=== PATIENT | female | born 1990 | race American Indian/Alaskan Native ===

== ENCOUNTER 2021-01-10 22:34 | Emergency (ER) | payer MEDICAID, OTHER ==
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
[2021-01-10] MEDS ORDERED: Ketorolac 30 MG/ML SDV IM ONE (23:56)
--- NOTE | 2021-01-11 00:05 | CRLCT ---
For Patients: As a result of the Century Cures Act, medical imaging exams and procedure reports are released immediately into your electronic medical record. You may view this report before your referring provider. If you have questions, please contact your health care provider. INDICATION: Trauma. Headaches. TECHNIQUE: Non-contrast CT of the head is submitted. No comparisons. FINDINGS: The ventricles, sulci and gyri are of normal size, shape and contour. Midline structures are centrally located. No convincing evidence of intra- or extra-axial fluid collections. IMPRESSION: 1. No radiographic evidence of acute intracranial abnormalities. Dictated by Brooks Cr MD @ 01/11/2021 12:02:17 AM Please note that all CT scans at this facility use dose modulation, iterative reconstruction, and/or weight-based dosing when appropriate to reduce radiation dose to as low as reasonably achievable. Dictated by: Brooks Cr MD @ 01/11/2021 00:02:24 (Electronically Signed)
== END 2021-01-11 00:23 | disposition home or self-care (01) ==
LOC: JP.ED 22:34
DX: S06.0X1A Concussion with loss of consciousness of 30 minutes or less, initial encounter (principal); S90.31XA Contusion of right foot, initial encounter; S00.01XA Abrasion of scalp, initial encounter; W20.8XXA Other cause of strike by thrown, projected or falling object, initial encounter; Y93.64 Activity, baseball
CPT/HCPCS: 70450; 96372; 99284; J1885

== ENCOUNTER 2021-02-18 04:34 | Emergency (ER) | payer MEDICAID, OTHER ==
[2021-02-18] MEDS ORDERED: Ketorolac 30 MG/ML SDV IM ONE (04:41)
--- NOTE | 2021-02-18 04:56 | EDM.PDOC ---
ED HPI GENERAL MEDICAL PROBLEM - General Chief Complaint: General Stated Complaint: COVID POSITIVE Time Seen by Provider: 02/18/21 04:39 Source of Information: Reports: Patient, EMS History Limitations: Reports: No Limitations - History of Present Illness INITIAL COMMENTS - FREE TEXT/NARRATIVE: He is a 30-year-old female who presents to the ED via [facility] from [place], [place] for evaluation of symptoms related to COVID-19. The patient was diagnosed earlier yesterday with COVID-19 and has been taking Tylenol for her symptoms. She took a gram of Tylenol approximately 1 hour prior to arrival to the ED. Her complaints include headache, dizziness, eye pain stating her eyes feel like they are burning, shortness of breath with cough, chest pain, abdominal pain, diarrhea and nausea without vomiting, muscle pain, and increased anxiety. 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 She started having symptoms on Saturday and then was diagnosed on Saturday with COVID-19. She was not vaccinated because she felt that she did not want to be a guinea pig to the vaccine. She does not have any history of diabetes, heart disease, hypertension or hyperlipidemia, or immunosuppression. Headache Pain Score (Numeric/FACES): 9 Bilateral Eye Pain Score (Numeric/FACES): 9 Neck Pain Score (Numeric/FACES): 9 - Related Data Allergies Allergy/AdvReac Type Severity Reaction Status Date / Time No Known Allergies Allergy Verified 02/18/21 04:56 Home Meds: Home Meds FLUoxetine HCl [Fluoxetine HCl] 40 mg PO DAILY 01/10/21 [History] Gabapentin [Neurontin] 300 mg PO TID PRN 01/10/21 [History] traZODone 100 mg PO BEDTIME 02/18/21 [History] Past Medical History Musculoskeletal History: Reports: Fracture - Infectious Disease History Infectious Disease History: Reports: C-Difficile - Past Surgical History Female Surgical History: Reports: Tubal Ligation Musculoskeletal Surgical History: Reports: Other (See Below) Other Musculoskeletal Surgeries/Procedures:: carpal tunnel ED ROS GENERAL - Review of Systems Review Of Systems: See Below Constitutional: Reports: Fever, Chills, Malaise, Weakness, Fatigue HEENT: Reports: Rhinitis, Throat Pain Respiratory: Reports: Shortness of Breath, Cough Cardiovascular: Reports: Chest Pain Endocrine: Reports: Fatigue GI/Abdominal: Reports: Abdominal Pain, Diarrhea, Nausea : Reports: No Symptoms Musculoskeletal: Reports: Back Pain, Muscle Pain Skin: Reports: No Symptoms Neurological: Reports: Dizziness, Headache Psychiatric: Reports: Anxiety Hematologic/Lymphatic: Reports: No Symptoms Immunologic: Reports: No Symptoms ED EXAM, GENERAL - Physical Exam Exam: See Below Exam Limited By: No Limitations General Appearance: Alert, Anxious, Moderate Distress Eye Exam: Bilateral Eye: EOMI, PERRL Throat/Mouth: Normal Oropharynx, Normal Voice, No Airway Compromise Head: Atraumatic, Normocephalic Neck: Normal Inspection, Supple, Non-Tender, Full Range of Motion. No: Lymphadenopathy (R), Lymphadenopathy (L) Respiratory/Chest: No Respiratory Distress, No Accessory Muscle Use, Rhonchi. No: Wheezing (Bilateral scattered rhonchi) Cardiovascular: Normal Peripheral Pulses, Regular Rate, Rhythm, No Murmur Peripheral Pulses: 2+: Radial (L), Radial (R) GI/Abdominal: Normal Bowel Sounds, Soft, Non-Tender Back Exam: Normal Inspection, Full Range of Motion Extremities: Normal Inspection, Normal Range of Motion Neurological: Alert, Oriented, Normal Cognition, No Motor/Sensory Deficits Psychiatric: Normal Affect, Normal Mood Skin Exam: Warm, Dry Course - Vital Signs Last Recorded V/S: Last Vital Signs Temp 36.6 C 02/18/21 04:43 Pulse 96 02/18/21 04:43 Resp 18 02/18/21 04:43 BP 95/45 L 02/18/21 04:43 Pulse Ox 95 02/18/21 04:43 - Orders/Labs/Meds Orders: Active Orders 24 hr Category Date Time Status Chest 1V Frontal [CR] Stat Exams 02/18/21 04:40 Ordered Labs: Laboratory Tests 02/18/21 02/18/21 02/18/21 Range/Units 05:10 05:10 05:10 WBC 6.2 (4.5-11.0) K/uL RBC 4.24 (3.30-5.50) M/uL Hgb 10.6 L (12.0-15.0) g/dL Hct 33.9 L (36.0-48.0) % MCV 80 (80-98) fL MCH 25 L (27-31) pg MCHC 31 L (32-36) % Plt Count 263 (150-400) K/uL Neut % (Auto) 79.1 H (36-66) % Lymph % (Auto) 6.6 L (24-44) % [place] % (Auto) 13.3 H (2-6) % Eos % (Auto) 0.8 L (2-4) % Baso % (Auto) 0.2 (0-1) % Sodium 140 (140-148) mmol/L Potassium 4.1 (3.6-5.2) mmol/L Chloride 105 (100-108) mmol/L Carbon Dioxide 23 (21-32) mmol/L Anion Gap 12.2 (5.0-14.0) mmol/L BUN 9 (7-18) mg/dL Creatinine 0.7 (0.6-1.0) mg/dL Est Cr Clr Drug Dosing 108.01 mL/min Estimated GFR (MDRD) > 60 (>60) Glucose 91 (74-106) mg/dL Lactic Acid 1.3 (0.4-2.0) mmol/L Calcium 7.9 L (8.5-10.1) mg/dL Ferritin 25 (8-388) ng/ml Total Bilirubin 0.1 L (0.2-1.0) mg/dL AST 24 (15-37) U/L ALT 51 (12-78) U/L Alkaline Phosphatase 76 (46-116) U/L Lactate Dehydrogenase 160 (82-234) U/L C-Reactive Protein 0.19 (0.0-0.3) mg/dL Total Protein 6.6 (6.4-8.2) g/dL Albumin 3.6 (3.4-5.0) g/dL Globulin 3.0 (2.3-3.5) g/dL Albumin/Globulin Ratio 1.2 (1.2-2.2) Procalcitonin ng/mL 02/18/21 Range/Units 05:10 WBC (4.5-11.0) K/uL RBC (3.30-5.50) M/uL Hgb (12.0-15.0) g/dL Hct (36.0-48.0) % MCV (80-98) fL MCH (27-31) pg MCHC (32-36) % Plt Count (150-400) K/uL Neut % (Auto) (36-66) % Lymph % (Auto) (24-44) % [place] % (Auto) (2-6) % Eos % (Auto) (2-4) % Baso % (Auto) (0-1) % Sodium (140-148) mmol/L Potassium (3.6-5.2) mmol/L Chloride (100-108) mmol/L Carbon Dioxide (21-32) mmol/L Anion Gap (5.0-14.0) mmol/L BUN (7-18) mg/dL Creatinine (0.6-1.0) mg/dL Est Cr Clr Drug Dosing mL/min Estimated GFR (MDRD) (>60) Glucose (74-106) mg/dL Lactic Acid (0.4-2.0) mmol/L Calcium (8.5-10.1) mg/dL Ferritin (8-388) ng/ml Total Bilirubin (0.2-1.0) mg/dL AST (15-37) U/L ALT (12-78) U/L Alkaline Phosphatase (46-116) U/L Lactate Dehydrogenase (82-234) U/L C-Reactive Protein (0.0-0.3) mg/dL Total Protein (6.4-8.2) g/dL Albumin (3.4-5.0) g/dL Globulin (2.3-3.5) g/dL Albumin/Globulin Ratio (1.2-2.2) Procalcitonin < 0.05 ng/mL Meds: Medications Discontinued Medications Generic Name Dose Route Start Last Admin Trade Name Freq PRN Reason Stop Dose Admin Ketorolac Tromethamine 30 mg 02/18/21 04:41 02/18/21 05:15 Ketorolac 30 Mg/Ml Sdv IM 02/18/21 04:42 30 mg ONETIME ONE Administration - Radiology Interpretation Free Text/Narrative:: Reviewed the one-view portable chest x-ray which was unremarkable for any significant infiltrates. There is normal cardiopulmonary anatomy. - Re-Assessments/Exams Free Text/Narrative Re-Assessment/Exam: 02/18/21 06:20 since chest x-ray which was unremarkable for any scattered infiltrates. There was normal cardiopulmonary anatomy. I reviewed the patient's labs showing a normal CBC, comprehensive metabolic panel, venous lactate, LDH, procalcitonin, ferritin, and C-reactive protein. It appears that we may be early into the COVID-19 symptoms with the patient. She did receive Toradol 30 mg IM with marked improvement in her symptoms. We will put her on oral Toradol 10 mg 4 times daily as needed dispensing 20 tablets. At this time she is suitable for discharge home. Indications to return to the ED were discussed. Departure - Departure Time of Disposition: 06:22 Disposition: Home, Self-Care 01 Clinical Impression: COVID-19 - Discharge Information Instructions: COVID-19: What to Do If You Are Sick- [facility] (07/27/2020), COVID-19: How to Protect Yourself and Others - [facility] Referrals: PCP,None [Primary Care Provider] - Forms: ED Department Discharge Care Plan Goals: Your lab work actually looks pretty good considering you are positive for COVID- 19. Your inflammatory markers are not out of the ordinary. I am going to give you a prescription for Toradol which is what she received in the shot to help with pain and fever. Make sure you take it with a small amount of food as to not irritate the stomach. Your symptoms can last up to 14 days. You will be considered contagious for at least the next 8 days. Sepsis Event Note (ED) - Focused Exam Vital Signs: Vital Signs Temp Pulse Resp BP Pulse Ox 02/18/21 04:43 36.6 C 96 18 95/45 L 95 - Problem List & Annotations (1) COVID-19 SNOMED Code(s): 912517106 Code(s): U07.1 - COVID-19 Status: Acute Priority: Medium Current Visit: Yes - Problem List Review Problem List Initiated/Reviewed/Updated: Yes - My Orders Last 24 Hours: My Active Orders 02/18/21 04:40 Chest 1V Frontal [CR] Stat - Assessment/Plan Last 24 Hours: My Active Orders 02/18/21 04:40 Chest 1V Frontal [CR] Stat
--- NOTE | 2021-02-20 09:55 | CR ---
CHEST: Portable 02/18/2021 at 5:22 AM CLINICAL HISTORY:covid COMPARISON:None FINDINGS: The heart size, pulmonary vascularity and hilar structures are normal. No infiltrate effusion or pneumothorax is seen. IMPRESSION: No acute cardiopulmonary process.
== END 2021-02-18 06:33 | disposition home or self-care (01) ==
LOC: JP.ED 04:34
DX: U07.1 COVID-19 (principal)
CPT/HCPCS: 36415; 71045; 80053; 82728; 83605; 83615; 84145; 85025; 86140; 96372; 99284; J1885

== ENCOUNTER 2021-10-22 20:03 | Emergency (ER) | payer MEDICAID, OTHER | END 2021-10-22 21:00 | disposition home or self-care (01) | LOC: JP.ED 20:03 | DX: S01.311A Laceration without foreign body of right ear, initial encounter (principal); Z79.899 Other long term (current) drug therapy; W22.8XXA Striking against or struck by other objects, initial encounter | CPT/HCPCS: 12011; 99281; 99282-25 ==

== ENCOUNTER 2024-12-11 20:40 | Emergency (ER) | payer MEDICAID ==
[2024-12-11] MEDS: Ketorolac 15 MG/ML SDV IVPUSH ONE (21:29)
[2024-12-11] MEDS: Sodium Chloride 0.9% 10 ML Syringe FLUSH PRN (21:32)
== END 2024-12-11 23:16 | disposition home or self-care (01) ==
LOC: JP.ED 20:40
DX: G43.909 Migraine, unspecified, not intractable, without status migrainosus (principal); Z79.899 Other long term (current) drug therapy
CPT/HCPCS: 70450; 96361; 96374; 96375; 99284; J1885; J2765; J7030